=== PATIENT | female | born 1965 | race Caucasian/White ===

== ENCOUNTER 2017-02-20 08:42 | Inpatient (IN) ==
[~2017-02-20 08:42] MED LIST: *HR* FentaNYL (PF) 100 MCG/2 ML VIAL ONE; *HR* Propofol 200 MG/20 ML VIAL IVP ONE; *HR* Remifentanil 1 MG VIAL IVP ONE; *HR* Succinylcholine 200 MG/10 ML VIAL IVP ONE; Dexamethasone 4 MG/ML VIAL ONE; Lidocaine -MPF 2% 2 ML VIAL ONE; Ondansetron 4 MG/2 ML VIAL ONE
[2017-02-20] MEDS ORDERED: Clindamycin 900 MG/50 ML 900 MG/50 ML IV.SOLN IVPB ONE (08:59)
[2017-02-20] MEDS ORDERED: Ringers Solution, Lactated 1,000 ML IVC SCH (09:00)
--- NOTE | 2017-02-20 09:20 | Anesthesia Evaluation PreOp ---
Date of Encounter: 02/20/17 Time of Encounter: 09:18 - Past History Planned Operation: plif l5-s1 Cardiac History: HTN, Arrhythmia (sb) Pulmonary History: Snore BINGO MANAGER History: Other (depression, ptsd, bipolar, foot drop, sciatica, carp lulu. L sciatica with pain radiating to buttock and down LLE with parasthesia lateral foot and l foot drop. R LE parasthesia and mild radiculopathy to R buttock.) Other Medical History: GERD Anesthesia History: No Prior Anesthetic Complications, Past Anesthesia (btl, egd ) Alcohol Use: none Drug use: none Medications and Allergies Allergies Penicillins [PCN] Allergy (Verified 02/14/17 14:34) Rash - Meds/Allergy Pre-op Review Medications Reviewed: Yes Allergies Reviewed: Yes Beta Blockers on Current Med List: Yes If Beta Blockers taken, Date/Time (Last Dose taken): bisoprolol at 0730 Anesthesia Results - Labs Laboratory Tests 02/14/17 02/14/17 02/14/17 14:43 14:43 14:43 Hgb 13.6 Hct 41.9 Plt Count 242 PT 12.0 INR 1.1 APTT 32.8 Sodium 140 Potassium 4.1 Creatinine 1.03 Serum , Qual 02/14/17 14:43 Hgb Hct Plt Count PT INR APTT Sodium Potassium Creatinine Serum , Qual Negative - Imaging EKG: report reviewed (sb) Anesthesia Exam O2 Sat Height 1.68 m Weight 109.769 kg Height: 1.68 Weight: 109 NPO (# of Hours): >8 - HEENT Pupil (Motor): Pupils equal, EOMI Mallampati: II Teeth: Normal Oral Opening: Greater than 3 (good underbite) - BINGO MANAGER LOC: Oriented BINGO MANAGER Motor: Normal RUE, Normal LUE, Deficit RLE, Deficit LLE, Deficit Face BINGO MANAGER Sensory: Normal: RUE, LUE, Deficit: RLE, LLE, Face - Cardiac Rhythm: Regular Murmur: None - Pulmonary Breath Sounds: bilateral Clear Respiratory Effort: Symmetrical Anesthesia Assess/Plan ASA Score: 2 Modified [place] Scale for Level of Consciousness: Cooperative, oriented, and tranquil Anesthetic Plan: General Monitoring Plan: Standard Monitors Recovery Plan: PACU
--- NOTE | 2017-02-20 10:06 | History & Physical Report ---
Date of Encounter: 02/20/17 Time of Encounter: 10:05 24 Hour HP Update - Instructions Instructions: If the History and Physical is less than 30 days old and was completed prior to A.M. admission and or procedure and has NOT been updated on calendar day of procedure please complete this update prior to performing procedure. - Update Patient reports changes in Medical Condition: No Changes in examination, assessment, or condition: No Changes in Medication: No Preop tests/diagnostics Reviewed: Yes Pre-Op MRSA Screen: Negative Surgery Remains Indicated: Yes Consent for Planned Operative Procedure(s) Verified: Yes - Pre-Operative Checklist Preoperative Checklist Indicated: No Prophylactic Antibiotic Ordered: Yes Home Medications Include Beta Colleen: No Beta Colleen Taken Today (Day of Surgery): Yes Beta Colleen Taken Yesterday (Day Prior to Surgery): No Is VTE Prophylaxis Indicated?: Yes
[2017-02-20] MEDS ORDERED: Acetaminophen IV 1,000 MG/100 ML INFUS..BTL ONE (11:03)
[2017-02-20] MEDS ORDERED: EPHEDrine 50 MG/ML VIAL ONE (11:14)
[2017-02-20] MEDS ORDERED: *HR* HYDROmorphone (PF) 1 MG/ML SYRINGE IVP PRN (12:47)
[2017-02-20] MEDS ORDERED: Ondansetron 4 MG/2 ML VIAL IVP ONE (12:47)
[2017-02-20] MEDS ORDERED: *HR* Promethazine 25 MG/ML VIAL IVP PRN (12:47)
[2017-02-20] MEDS ORDERED: Ketorolac 30 MG/ML VIAL IVP ONE (12:47)
[2017-02-20] MEDS ORDERED: *HR* HYDROmorphone 2 MG/ML SYRINGE ONE (13:38)
[2017-02-20] MEDS ORDERED: *HR* FentaNYL (PF) 100 MCG/2 ML VIAL ONE (13:57)
--- NOTE | 2017-02-20 14:24 | Orthopedic Operative Note ---
Date of procedure: 02/20/17 Pre-op diagnosis: Spondylolisthesis, lumbar stenosis Post-op diagnosis: same Operation/Findings: Posterior lumbar interbody fusion L5-S1: The patient successfully underwent general endotracheal anesthesia. The patient was given antibiotics prior to the start of the procedure. Compression boots and stockings were used for deep vein thrombosis prophylaxis. A Price catheter was placed. Leads for neuro monitoring were placed on the upper and lower extremities. This included the cranium. The neuro monitoring personnel confirmed there were satisfactory readings prior to the start of the procedure. The patient was turned prone on the Moncoh table. The back was prepped and draped in the usual sterile fashion. An incision was was marked and centered over the involved L5-S1 levels in the mid line. The incision was deepened through the lumbar fascia. Bovie cautery and Taylor elevators were used to reflect the paraspinal musculature at the lateral extent of the transverse processes of the involved L5 and S1 levels. Yelitza clamps were placed over the L5 spinous process. An intraoperative lateral fluoroscograph was obtained. A conversation was held between the surgeon and radiologist and both confirmed we had the correct operative levels. We then placed pedicle screws in standard fashion with the aid of fluoroscopy and anatomic landmarks. Briefly a starter awl was used. A gearshift was subsequently used to enter the ems helicopter pilot hole via a transpedicular route into the vertebral body. The ems helicopter pilot hole was tapped with an undersized instrument, and subsequently four 6.5 x 40 mm pedicle screws were placed bilaterally at the indicated L5 and S1 levels. The screws were tested with the aid of the neurologic monitoring staff via pedicle screw stimulation. All reading suggested there was no significant cortical wall breech. The screws were also evaluated fluoro- graphically and appeared to be in satisfactory position. We then turned our attention to the decompression portion of the procedure. We removed the supraspinous and interspinous ligaments and subsequently the insertion of the ligamentum flavum on the undersurface of the proximal L5 lamina was dislodged with a curette. We then removed the ligamentum flavum as well as undercut the facets at this L5-S1 level to decompress the lateral recesses. We also performed a L5 laminectomy. After the decompression, which was over and above that which was required to place the interbody graft, the foramen and traversing roots at this L5-S1 level were found to be free and patent. We also took part of the medial facets in order to aid in the decompression. We then protected the neural elements including the thecal sac and traversing nerve root on the right with a dural retractor. We made an annulotomy into the L5-S1 disc space and then removed entire disc material using Pituitary instruments. We trialed various size grafts after the endplates were prepared for graft insertion. A 10 x 26 enter body graft fit well within the L5-S1 disc space. We obtained some bone from the right posterior superior iliac spine through us a separate incision and combined with this with the bone which we had saved from the laminectomy portion of the procedure. This autograft bone was first placed in the anterior portion of the L5-S1 disc space and additional bone was placed within the interbody graft spacer. We then placed the interbody graft spacer obliquely across the disc space towards the midline while protecting the neural elements with a root retractor. When the graft was found to be in satisfactory position the residential gas heat technician was removed. We then copiously irrigated the wound. We then decorticated the L5 transverse processes as well as the proximal portion of the sacrum and the facet joints of the involved L5-S1 levels to aid in the posterolateral fusion. We placed autograft bone in the lateral gutters over these regions. We then placed rods within the screw heads of the involved levels and first locked the distal screws and then subsequently locked the proximal screws so as to improve and reduce the spondylolisthesis previously seen. We then closed the wound in layers with 1 Vicryl for the fascia, 2-0 Vicryl. Subcutaneous tissue, and Dermabond was used for skin closure. Sterile dressings were placed over the wound. The patient was turned supine on a hospital bed and extubated. All sponge instruments and needle counts were correct at the end of the procedure. The patient tolerated the procedure well without complications. Anesthesia: GETA Surgeon: Dileep Culp Jr Estimated blood loss (cc): 300 Condition: stable Disposition: PACU
--- NOTE | 2017-02-20 15:11 | Anesthesia Evaluation Post Op ---
Date of Encounter: 02/20/17 Time of Encounter: 15:10 - Vital Signs Vital Signs: Vital Signs/O2 Sat, Most Current Temp Pulse Resp BP Pulse Ox 97.3 F L 55 10 106/59 94 02/20/17 14:40 02/20/17 15:00 02/20/17 15:00 02/20/17 15:00 02/20/17 15:00 - Lungs Lungs: Clear Ascult./Percussion - Airway Airway: Non-obstructed - Cardiovascular Regular Rate - Mental Status Mental Status: Alert & Oriented, Answers Appropriately - Pain Pain Scale: 0 Pain Scale used: Numeric (1 - 10) - Nausea Vomiting Nausea Vomiting: Not Present - Hydration Hydration: Ice chips, Price catheter - Discharge PostOp Status: Transfer Patient to floor
[2017-02-20] MEDS ORDERED: Naloxone 0.4 MG/ML INJ IVP PRN (15:27)
[2017-02-20] MEDS ORDERED: Ondansetron 4 MG/2 ML VIAL IVP PRN (15:27)
[2017-02-20] MEDS ORDERED: *HR* OxyCODONE Immed Rel 5 MG TABLET PO SCH (16:00)
[2017-02-20] MEDS: Ringers Solution, Lactated 1,000 ML IVC SCH (17:35)
[2017-02-20] MEDS: Baclofen 10 MG TABLET PO SCH ×2 (17:35→20:36)
[2017-02-20] MEDS: *HR* OxyCODONE Immed Rel 5 MG TABLET PO PRN ×2 (17:55→21:58)
[2017-02-20] MEDS: ceFAZolin 2,000 MG in D5% in Water 100 ML IVPB SCH (17:55)
[2017-02-20] MEDS: Famotidine 20 MG TABLET PO SCH (20:35)
[2017-02-20] MEDS: *HR* Morphine 2 MG/ML SYRINGE IVP PRN (20:36)
[2017-02-20] MEDS: lamoTRIgine 100 MG TABLET PO SCH (20:36)
[2017-02-21] MEDS: ceFAZolin 2,000 MG in D5% in Water 100 ML IVPB SCH (00:39)
[2017-02-21] MEDS: *HR* Morphine 2 MG/ML SYRINGE IVP PRN ×3 (00:40→17:06)
[2017-02-21] MEDS: Ringers Solution, Lactated 1,000 ML IVC SCH (00:47)
[2017-02-21] MEDS: *HR* OxyCODONE Immed Rel 5 MG TABLET PO PRN ×4 (04:34→20:18)
[2017-02-21 05:14] LABS: BUN/Creatinine Ratio 14 (6-26); Blood Urea Nitrogen 13 mg/dL (7-20); Calcium 9.1 mg/dL (8.6-10.8); Carbon Dioxide 29 mEq/L (19-29); Chloride 101 mEq/L (98-109); Glucose 118 mg/dL (70-99); Osmolality,Calculated 285 (280-300); Potassium 4.2 mEq/L (3.5-4.5); Sodium 137 mEq/L (136-145); eGFR For African Americans > 60 (> 60); eGFR For Non-African Americans > 60 (> 60)
[2017-02-21 05:17] LABS: Basophils % 0.2 %; Eosinophils % 0.4 %; Hematocrit 35.5 % (35.3-44.9); Immature Granulocytes % 0.5 % (0-4); Lymphocytes # 1.1 K/mcL (0.6-4.6); Lymphocytes % 13.4 %; Mean Corpuscular HGB Conc 32.7 g/dL (31.6-35.5); Mean Corpuscular Hemoglobin 30.4 pg (28.0-33.3); Mean Corpuscular Volume 92.9 fL (83.0-100.0); Mean Platelet Volume 11.3 fL (9.4-12.4); Monocytes # 0.7 K/mcL (0.0-1.3); Monocytes % 7.8 %; Neutrophils # 6.6 K/mcL (1.6-8.9); Platelet Count 192 K/mcL (140-400); Red Blood Count 3.82 M/mcL (3.82-4.97); Red Cell Distribution Width 12.9 % (11.5-14.5); Segmented Neutrophils % 77.7 %
[2017-02-21 05:25] LABS: Hemoglobin 11.6 g/dL (11.5-15.4)
[2017-02-21] MEDS: Bisoprolol/HCTZ 10/6.25 TABLET PO SCH (08:33)
[2017-02-21] MEDS: Baclofen 10 MG TABLET PO SCH ×3 (08:33→20:18)
[2017-02-21] MEDS: M PROGEST ACET PO SCH (08:33)
[2017-02-21] MEDS: ESTROGEN CON PO SCH (08:33)
[2017-02-21] MEDS: Lisinopril 20 MG TABLET PO SCH (08:38)
--- NOTE | 2017-02-21 12:20 | Spine Progress Note ---
Date of Encounter: 02/21/17 Time of Encounter: 12:19 Subjective Principal diagnosis: Lumbar stenosis, spondylolisthesis Interval history: The patient is without complaints except some right lateral thigh numbness. Afebrile vital signs are stable. Incision is clean dry and intact. Neurovascularly intact with regard to bilateral lower extremities. Fires all upper and lower extremity motor groups. Assessment :stable. Plan mobilize , continue analgesics, discharge planning. Objective Vital signs: Vital Signs Temp Pulse Resp BP Pulse Ox 02/21/17 10:53 97.9 F 64 18 114/76 98 02/21/17 06:47 98.4 F 56 16 143/86 99 02/21/17 04:39 98.6 F 60 18 148/83 100 02/21/17 00:40 97.9 F 61 17 116/64 100 02/20/17 19:24 97.6 F 55 14 135/81 100 02/20/17 18:01 97.7 F 60 12 130/81 99 02/20/17 17:19 97.7 F 60 10 108/67 98 02/20/17 16:30 97.6 F 58 10 129/66 99 02/20/17 15:27 97.4 F L 52 15 118/81 96 02/20/17 15:10 97 F L 57 12 113/67 96 02/20/17 15:00 55 10 106/59 94 02/20/17 14:50 55 10 114/76 93 02/20/17 14:40 97.3 F L 77 8 116/63 94 Intake and Output 02/20/17 02/21/17 02/21/17 23:59 07:59 15:59 Intake Total 160 / 160 1600 / 1600 360 / 360 Output Total 225 / 225 2300 / 2300 Balance -65 / -65 -700 / -700 360 / 360 Intake: IV Fluids 100 / 100 1100 / 1100 Lactated Ringers 1,000 ML 1000 / 1000 @ 100 mls/hr IVC .Q10H [facility] Rx#:[id number] Ancef 2,000 MG In 100 / 100 100 / 100 Dextrose 5% 100 ML @ 200 mls/hr IVPB Q8H [facility] Rx#: [id number] Oral 60 / 60 500 / 500 360 / 360 Output: Catheter 225 / 225 2300 / 2300 Other: Meal Breakfast Percent of Meal Consumed 100% Weight 110.72 kg Patient Weight 02/21/17 23:59 Weight 110.72 kg - Labs CBC & BMP: 02/21/17 04:08 02/21/17 04:08 Labs: Abnormal lab results Glucose 118 mg/dL (70-99) H 02/21/17 04:08 Consult Discharge Plan - Plan Referrals: Michael Roth MD [Primary Care Provider] -
[2017-02-21] MEDS: Sennosides 8.6 MG TABLET PO SCH (20:17)
[2017-02-21] MEDS: lamoTRIgine 100 MG TABLET PO SCH (20:17)
[2017-02-21] MEDS: Famotidine 20 MG TABLET PO SCH (20:18)
[2017-02-22] MEDS: *HR* OxyCODONE Immed Rel 5 MG TABLET PO PRN ×5 (00:32→20:48)
[2017-02-22] MEDS: M PROGEST ACET PO SCH (08:48)
[2017-02-22] MEDS: Baclofen 10 MG TABLET PO SCH ×3 (08:48→20:48)
[2017-02-22] MEDS: ESTROGEN CON PO SCH (08:48)
[2017-02-22] MEDS: Bisoprolol/HCTZ 10/6.25 TABLET PO SCH (08:48)
[2017-02-22] MEDS: Lisinopril 20 MG TABLET PO SCH (08:48)
[2017-02-22] MEDS: Famotidine 20 MG TABLET PO SCH (20:48)
[2017-02-22] MEDS: Sennosides 8.6 MG TABLET PO SCH (20:48)
[2017-02-22] MEDS: lamoTRIgine 100 MG TABLET PO SCH (20:48)
[2017-02-23] MEDS: *HR* OxyCODONE Immed Rel 5 MG TABLET PO PRN ×4 (01:00→14:39)
[2017-02-23] MEDS: Lisinopril 20 MG TABLET PO SCH (09:06)
[2017-02-23] MEDS: Baclofen 10 MG TABLET PO SCH ×2 (09:07→14:39)
[2017-02-23] MEDS: ESTROGEN CON PO SCH (09:07)
[2017-02-23] MEDS: M PROGEST ACET PO SCH (09:07)
[2017-02-23] MEDS: Bisoprolol/HCTZ 10/6.25 TABLET PO SCH (09:07)
[2017-02-23 15:02] VITALS: BP 110/68
--- NOTE | 2017-02-23 15:14 | Discharge Summary ---
Date of Encounter: 02/23/17 Time of Encounter: 15:12 - Discharge Diagnosis (1) Spondylolisthesis Priority: Primary Status: Chronic Qualifiers: Spinal region: lumbar Qualified Code(s): M43.16 - Spondylolisthesis, lumbar region (2) Lumbar stenosis Priority: Secondary Status: Chronic - Discharge Medications Home Medications: Baclofen [Lioresal] 10 mg PO TID 02/20/17 [History] Bisoprolol/HCTZ 10/6.25 [Ziac 10/6.25] 1 each PO DAILY 02/20/17 [History] DULoxetine [Cymbalta] 30 mg PO DAILY 02/20/17 [History] Estrogen,Con/M-Progest Acet [Prempro 0.3 mg-1.5 mg Tablet] 1 each PO DAILY 02/20 [History] Famotidine [Pepcid] 20 mg PO HS 02/20/17 [History] Lisinopril [Zestril] 20 mg PO DAILY 02/20/17 [History] Naproxen [EC-Naprosyn] 375 mg PO Q12H 02/20/17 [History] Oxycodone HCl/Acetaminophen [Percocet 7.5-325 mg Tablet] 1 each PO Q8H PRN 02/20 [History] lamoTRIgine [Lamictal] 100 mg PO HS 02/20/17 [History] Allergies/Adverse Reactions: Allergies Penicillins [PCN] Allergy (Verified 02/20/17 09:38) Rash - Impressions ITS Impressions Lumbar Spine X-Ray 02/20/17 13:39 IMPRESSION: Single intraoperative image demonstrating postsurgical changes at L5-S1. D/ / Anny Rowley MD / Anny Rowley MD Interpreting Provider: Anny Rowley MD Lumbar Spine X-Ray 02/23/17 12:49 IMPRESSION: Limited evaluation demonstrating unipedicular screws overlying the left pedicles of L5 and S1. D/ / Pb Ron MD / Pb Ron MD Interpreting Provider: Pb Ron MD Date of admission: 02/20/17 11:03 Primary care physician: Michael Roth MD Consults: 02/20/17 15:27 Consult to Occupational Therapy [CONS] Routine Comment: Evaluate, develop and implement POC Reason for Consult: Postoperative Consult to Physical Therapy [CONS] Routine Comment: Evaluate, develop and implement POC Reason for Consult: Postoperative Consult to Spine Navigator [CONS] [CONS] Routine - Patient Status Disposition: Transfer Inpatient Rehab Fac Condition: Good Functional capacity at discharge: uses cane/walker Overall status at discharge: patient is progressing back to baseline - Discharge Instructions Follow Up With: Michael Roth MD [Primary Care Provider] - Additional Instructions: Discharge Instructions: Lumbar Please call [facility] ([phone]), your Primary Care Physician, or report to the ER if you have any of the following symptoms: Fever greater that 101.5, increased pain/redness/drainage/odor for your incision site or any other concerning symptoms. ACTIVITY * May Shower * No Tub Baths * No lifting greater than 10 pounds * No Smoking * No Swimming * No off Ground Activities (Running, Climbing, Ladders, Horseback Riding) * No Driving * Wear Back Brace when up walking if lumbar fusion done MEDICATIONS: Upon discharge resume your home medications. Take all the medications as prescribed. Take a stool softener if taking narcotic pain medications. Stool softeners are only effective if you drink enough fluids. Drink 6-8 glass of water or fluids a day, unless this is not allowed for another health problem. Despite using stool softeners, if you haven't had a bowel movement in 3 days, please switch to a gentle laxative. Gentle laxatives are sold over the counter. You should have a bowel movement within 24 hours, if not call the office. You will be discharged from the hospital with a prescription for pain medication. You are encouraged to decrease the use of narcotic pain medication as tolerated. Should you require a refill, please call the office. It is best to call 48-72 hours in advance of needing a prescription refill so you don't run out of medication. WOUND CARE: Remove Dressing Tomorrow. Leave incision open to air. Pat dry when you get out of the shower. FOLLOW-UP: Please follow up with your surgeon in the orthopedic clinic in 2 weeks from the day of surgery. References: [employer] (www.apta.org) - Diet and Activity Activity: as per physical therapy Diet: advance to your usual diet - Hospital Course Hospital course: Ms. Esquivel is a 51 year old female The patient had an uneventful postoperative course. Progressed from intravenous analgesic needs to oral analgesic needs only. Remained neurovascularly intact and mobilized satisfactorily. All intraoperative and/or postoperative radiographic studies were satisfactory. Patient is discharged with plan for rehabilitation and follow-up in 2 weeks post discharge on analgesic medication and patient's home medications. - Time Spent with Patient Total time spent providing and/or coordinating discharge services: - VTE Documentation of Mechanical Device: Intermittent pneumatic compression device
== END 2017-02-23 16:19 | DRG 304 ==
LOC: SAMDAY 08:42 → 3NENU 11:03
PROVIDERS: ADMIT Orthopaedic Surgery Orthopaedic Surgery of the Spine; ATTEND Orthopaedic Surgery Orthopaedic Surgery of the Spine